=== PATIENT | male | born 1995 ===

== ENCOUNTER 2019-03-09 10:54 | Emergency (ER) | payer SELFPAY ==
[2019-03-09] MEDS ORDERED: Lidocaine 1% MPF ** 5 ML VIAL INJ ONE (11:49)
--- NOTE | 2019-03-09 11:54 | UC ---
Skin Complaint HPI - HPI Summary HPI Summary: patient was struck by a cow's head in the upper buttock area 10 day sago. it cause an abrasion which is no swollen, tender and draining yellow fluid it is painful to sit. patient did not fall after being struck by cow - History of Current Complaint Chief Complaint: UCBackPain Time Seen by Provider: 03/09/19 11:37 Stated Complaint: BACK PAIN Hx Obtained From: Patient - with use translation frieda Onset/Duration: Sudden Onset - 10 days ago Onset Severity: Severe Current Severity: Moderate Pain Intensity: 5 Character: Swelling, Painful Aggravating Factor(s): Touch, Other - pressure Alleviating Factor(s): Nothing Associated Signs & Symptoms: Positive: Drainage, Tenderness Related History: Trauma - Allergy/Home Medications Allergies/Adverse Reactions: Allergies Allergy/AdvReac Type Severity Reaction Status Date / Time No Known Allergies Allergy Verified 03/09/19 11:11 PMH/Surg Hx/FS Hx/Imm Hx Previously Healthy: Yes - Surgical History Surgical History: Yes Surgery Procedure, Year, and Place: R knee surgery - Family History Known Family History: Positive: None - Social History Occupation: Employed Full-time - [employer] Lives: With Family Alcohol Use: None Substance Use Type: None Smoking Status (MU): Never Smoked Tobacco - Immunization History Vaccination Up to Date: Yes Review of Systems All Other Systems Reviewed And Are Negative: Yes Constitutional: Positive: Negative Skin: Positive: Other - painful lump buttock Respiratory: Positive: Negative Cardiovascular: Positive: Negative Neurological: Positive: Negative Psychological: Positive: Negative Is Patient Immunocompromised?: No Physical Exam Triage Information Reviewed: Yes Appearance: Well-Appearing, No Pain Distress, Well-Nourished Vital Signs: Initial Vital Signs Temp 99.3 F 03/09/19 11:12 Pulse 85 03/09/19 11:12 Resp 16 03/09/19 11:12 BP 127/78 03/09/19 11:12 Pulse Ox 99 03/09/19 11:12 Vital Signs Reviewed: Yes Respiratory Exam: Normal Respiratory: Positive: Lungs clear Cardiovascular Exam: Normal Cardiovascular: Positive: RRR Musculoskeletal Exam: Normal Musculoskeletal: Positive: Strength Intact, ROM Intact, Other: - no pain with back movement Skin: Positive: Other - larger swollen painful area upper L buttock with non- draining white/yellow pustule Procedures - Incision and Drainage Left Buttocks Site: left upper buttock Anesthesia: Local - 1 % lidocaine Instrument(s): Scalpel Packing: Gauze Course/Dx - Course Course Of Treatment: large amount of purulent drainage expressed from buttock abscess - Differential Diagnoses - Skin Complaint Differential Diagnoses: Abscess, Other - contusion, cellulitis - Diagnoses Provider Diagnosis: Pilonidal abscess Discharge ED - Sign-Out/Discharge Documenting (check all that apply): Patient Departure All imaging exams completed and their final reports reviewed: No Studies - Discharge Plan Condition: Improved Disposition: HOME Prescriptions: Cephalexin CAP* [Keflex 500 CAP*] 500 mg PO QID #40 cap Ibuprofen TAB* [Motrin TAB* 800 MG] 800 mg PO Q6H #30 tab Patient Education Materials: Pilonidal Cyst (ED) Print Language: CHINESE Referrals: No Primary Care Phys,NOPCP [Primary Care Provider] - Additional Instructions: Keep wound clean and dry there is a small piece of gauze packing in the wound to help it keep draining return here in 2 days to have the packing removed start taking antibiotic today and drink plenty of water you can change the outer dressing on your wound when it gets dirty- do not pull out packing - Billing Disposition and Condition Condition: IMPROVED Disposition: Home
== END 2019-03-09 12:49 | disposition home or self-care (01) ==
LOC: UCEAST 10:54
DX: L05.01 Pilonidal cyst with abscess (principal); M54.5 Low back pain
CPT/HCPCS: 10080; 87070; 87205; 87640; 87641; 99202; G0463

== ENCOUNTER 2019-03-11 09:57 | Emergency (ER) | payer OTHER ==
--- NOTE | 2019-03-11 11:08 | UC ---
HPI Wound/Suture Re-check - History Of Current Complaint Chief Complaint: UCSkin Stated Complaint: WOUND CHECK Time Seen by Provider: 03/11/19 11:07 Pain Intensity: 2 - Allergies/Home Medications Allergies/Adverse Reactions: Allergies Allergy/AdvReac Type Severity Reaction Status Date / Time No Known Allergies Allergy Verified 03/11/19 10:15 PMH/Surg Hx/FS Hx/Imm Hx - Surgical History Surgical History: Yes Surgery Procedure, Year, and Place: R knee surgery - Family History Known Family History: Positive: None - Social History Alcohol Use: None Substance Use Type: None Smoking Status (MU): Never Smoked Tobacco - Immunization History Vaccination Up to Date: Yes Physical Exam Vital Signs: Initial Vital Signs Temp 98 F 03/11/19 10:09 Pulse 72 03/11/19 10:09 Resp 18 03/11/19 10:09 BP 115/70 03/11/19 10:09 Pulse Ox 99 03/11/19 10:09 Discharge ED - Discharge Plan Referrals: No Primary Care Phys,NOPCP [Primary Care Provider] -
--- NOTE | 2019-03-11 14:04 | UC ---
HPI Wound/Suture Re-check - HPI Summary HPI Summary: Patient is a 23yo male presenting for re-check of his pilonidal cyst that he received treatment for from here 2 days ago. He received wound packing and was told to follow up. The patient is togolese-speaking, so a internet network specialist was used for duration of interview and exam. Patient notes the area is back tender fourdrinier. Patient denies any further drainage through dressing. Denies fever and chills. Denies n/v. Patient also notes that he had the same thing happen 2 years ago. - History Of Current Complaint Chief Complaint: UCSkin Stated Complaint: WOUND CHECK Time Seen by Provider: 03/11/19 11:07 Hx Obtained From: Patient, Research Aide - internet network specialist pad Severity: Mild Pain Intensity: 2 Pain Scale Used: 0-10 Numeric - Allergies/Home Medications Allergies/Adverse Reactions: Allergies Allergy/AdvReac Type Severity Reaction Status Date / Time No Known Allergies Allergy Verified 03/11/19 10:15 PMH/Surg Hx/FS Hx/Imm Hx Previously Healthy: Yes - Surgical History Surgical History: Yes Surgery Procedure, Year, and Place: R knee surgery - Family History Known Family History: Positive: None - Social History Alcohol Use: None Substance Use Type: None Smoking Status (MU): Never Smoked Tobacco - Immunization History Vaccination Up to Date: Yes Review of Systems All Other Systems Reviewed And Are Negative: No Constitutional: Positive: Negative. Negative: Fever, Chills Skin: Positive: Other - pilonidal cyst Respiratory: Positive: Negative Cardiovascular: Positive: Negative Gastrointestinal: Positive: Negative Musculoskeletal: Positive: Negative Physical Exam Triage Information Reviewed: Yes Appearance: Well-Appearing, No Pain Distress, Well-Nourished Vital Signs: Initial Vital Signs Temp 98 F 03/11/19 10:09 Pulse 72 03/11/19 10:09 Resp 18 03/11/19 10:09 BP 115/70 03/11/19 10:09 Pulse Ox 99 03/11/19 10:09 Vital Signs Reviewed: Yes Eyes: Positive: Conjunctiva Clear ENT: Positive: Hearing grossly normal Neck: Positive: Supple Respiratory: Positive: No respiratory distress Neurological: Positive: Alert Psychological: Positive: Age Appropriate Behavior Skin: Positive: Other - dressing and packing removed to reveal pilonidal cyst not actively draining. moderate amount of blood tinged purulent drainage expressed when pressure applied. Course/Dx - Course Course Of Treatment: I removed old dressing/packing, drained the wound, and re-applied 1/4 wound packing. Another clean dressing was then applied. Patient tolerated procedure well. I called surgery and made an appointment for the patient on Monday this week. I instructed the patient to attend this appointment for further evaluation of pilonidal cyst. All questions from patient were answered. Patient voiced understanding and agreed with the treatment plan. - Diagnosis Provider Diagnosis: Encounter for wound re-check Discharge ED - Sign-Out/Discharge Documenting (check all that apply): Patient Departure All imaging exams completed and their final reports reviewed: No Studies - Discharge Plan Condition: Stable Disposition: HOME Patient Education Materials: Pilonidal Cyst (ED), Pilonidal Cyst Excision (DC) Referrals: Clement Ortiz MD [Medical Doctor] - 03/13/19 11:00 am Additional Instructions: As discussed, it is likely that your pilonidal cyst will need to be surgically removed. An appointment has been made for you on Monday this week. Keep the packing intact and dressing on until you attend your appointment. Your surgical appointment information: Wednesday, March 13, 2019 11:00am [facility] [address], [place] [address] - Billing Disposition and Condition Condition: STABLE Disposition: Home - Attestation Statements Provider Attestation: I was available for consult. This patient was seen by the JAMILAH. The patient was not presented to, seen by, or examined by me. -Sally
== END 2019-03-11 12:10 | disposition home or self-care (01) ==
LOC: UCEAST 09:57
DX: Z48.817 Encounter for surgical aftercare following surgery on the skin and subcutaneous tissue (principal); L05.91 Pilonidal cyst without abscess
CPT/HCPCS: 99211; G0463